=== PATIENT | male | born 1980 | race African-American/Black ===

== ENCOUNTER 2016-06-25 10:43 | Emergency (ER) | payer OTHER ==
[~2016-06-25] VITALS: Ht 170.2 cm; Wt 71.3 kg
[2016-06-25 11:23] LABS: HEMATOCRIT 34.6 % (38.0-50.0); MCHC 32.4 G/DL (30.0-36.0); MCV 74.1 FL (86-99); MEAN PLAT.VOLUME 10.1 uM^3 (9.0-12.4); PLATELET COUNT 426 K/uL (156-360); RBC DIS.WIDTH-CV 16.8 % (11.8-14.6); RBC DIS.WIDTH-SD 43.5 % (39-53); RED BLOOD COUNT 4.67 M/uL (4.00-5.50)
[2016-06-25 11:31] LABS: CHLORIDE 102 mEq/L (99-109)
[2016-06-25 11:32] LABS: POTASSIUM 3.3 mEq/L (3.7-5.4); SODIUM 131 mEq/L (136-147)
[2016-06-25 11:34] LABS: GLUCOSE 135 mg/dL (70-99)
[2016-06-25 11:35] LABS: ANION GAP 12 MEQ/L (2-14)
[2016-06-25 11:36] LABS: TOTAL BILIRUBIN 0.3 mg/dL (0.0-1.0)
[2016-06-25 11:37] LABS: ALKALINE PHOSPHATASE 145 IU/L (3-129)
[2016-06-25 11:38] LABS: GFR ESTIMATE (CALCULATED) > 59 mL/min/
[2016-06-25 11:39] LABS: UREA NITROGEN (BUN) 14 mg/dL (9-23)
[2016-06-25 11:41] LABS: LIPASE 17 U/L (1.0-51.0)
[2016-06-25 12:08] LABS: COLOR BLOODY ((YELLOW))
[2016-06-25 12:51] LABS: GLUCOSE (STRIP) NEGATIVE; KETONES TRACE
[2016-06-25 12:52] LABS: ADD MIUA? YES; BILIRUBIN NEGATIVE; BLOOD LARGE; LEUKOCYTES LARGE; NITRITE POSITIVE; PROTEIN (STRIP) 100; SPECIFIC GRAVITY 1.012 (1.000-1.030)
[2016-06-25 12:53] LABS: RED BLOOD CELLS TNTC /HPF (0-5); UCUL ADDED? YES; WHITE BLOOD CELLS TNTC /HPF (0-5)
[2016-06-25 14:09] LABS: ADD MIUA? YES; BILIRUBIN NEGATIVE; BLOOD LARGE; COLOR RED ((YELLOW)); GLUCOSE (STRIP) NEGATIVE; KETONES NEGATIVE; LEUKOCYTES LARGE; NITRITE POSITIVE; PROTEIN (STRIP) 300; SPECIFIC GRAVITY 1.026 (1.000-1.030); UROBILINOGEN 0.2 MG/DL (0.2-1.0)
[2016-06-25 15:58] VITALS: BP 89/59
== END 2016-06-25 16:25 | disposition short-term general hospital (02) ==
LOC: EME 10:43
PROVIDERS: Emergency Medicine
DX: N39.0 Urinary tract infection, site not specified (principal); T83.021A Displacement of indwelling urethral catheter, initial encounter; R33.9 Retention of urine, unspecified; L89.324 Pressure ulcer of left buttock, stage 4; G82.20 Paraplegia, unspecified; Z93.3 Colostomy status
CPT/HCPCS: 71010; 74177; 80053; 81003; 83605; 83690; 85027; 87040; 87077; 87086; 87186; 87801; 99281; 99285; J0692; J1170; J1885; J7030; J7050